=== PATIENT | female | born 1980 | race Caucasian/White ===

== ENCOUNTER → 2020-12-04 | Outpatient (CLI) | payer BC ==
[~2020-12-04] MED LIST: COLACE100 MG PO; HYDROCHLOROTH12.5 MG PO; IMITREX100 MG PO; METAMUCIL PLUS1 EACH PO; MIRALAX17 GM PO; OMNICEF 300 MG300 MG PO; TOPROL XL25 MG PO
== END ==
LOC: MAMO 08:23
DX: Z12.31 Encounter for screening mammogram for malignant neoplasm of breast (principal)
CPT/HCPCS: 77063; 77067

== ENCOUNTER → 2020-12-13 | Outpatient (CLI) | payer BC | LOC: US 12:42 | DX: R92.8 Other abnormal and inconclusive findings on diagnostic imaging of breast (principal) | CPT/HCPCS: 76641-LT; 77065 ==

== ENCOUNTER → 2021-06-19 | Outpatient (CLI) | payer BC | LOC: MAMO 13:48 | DX: R92.8 Other abnormal and inconclusive findings on diagnostic imaging of breast (principal); Z98.890 Other specified postprocedural states; Z97.8 Presence of other specified devices | CPT/HCPCS: 77065 ==